=== PATIENT | male | born 2000 | race American Indian/Alaskan Native ===

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

== ENCOUNTER 2021-09-06 22:55 | Emergency (ER) | payer MEDICAID ==
[~2021-09-06] VITALS: Ht 172.7 cm; Wt 80.7 kg
--- NOTE | 2021-09-07 00:53 | NUR ---
CALL FROM JODY IN LAB PT IS POSITIVE FOR INFLUENZA A.
[2021-09-07 01:31] VITALS: BP 110/60
== END 2021-09-07 01:33 | disposition home or self-care (01) ==
LOC: ER 22:56
DX: J09.X2 Influenza due to identified novel influenza A virus with other respiratory manifestations (principal); Z20.822 Contact with and (suspected) exposure to COVID-19
CPT/HCPCS: 87502; 87503; 87635; 99283; C9803